=== PATIENT | female | born 1970 | race Caucasian/White ===

== ENCOUNTER 2020-04-10 12:37 | Outpatient (REF) | payer OTHER, SELFPAY ==
--- NOTE | 2020-04-10 12:45 | MM_ITS ---
EXAMINATION: MM DIAGNOSTIC DIGITAL BREAST TOMOSYNTHESIS, BILATERAL CLINICAL INFORMATION: Probable benign calcifications 11:00 right breast. Due for yearly. The lifetime risk of breast cancer based on the Tyrer-Cuzick Model is 12%. COMPARISON: Mammography: 04/07/2019, 09/30/2018, 04/01/2018, 03/25/2018 (BI-RADS 0), 03/12/2017, 02/20/2016 TECHNIQUE: Digital breast tomosynthesis is performed in both the craniocaudal and mediolateral oblique views along with computer-aided detection (CAD). Synthesized 2D images are generated from the tomosynthesis. Additional magnification right CC, magnification right ML views are provided. FINDINGS: There are scattered areas of fibroglandular density (ACR BI-RADS breast composition Category b). Parenchymal pattern is similar to prior studies. There is no developing density or interval mass or architectural abnormality. Again, there are numerous bilateral calcifications predominantly anterior breasts, greater in number on right. Biopsy clip marker again seen anterior 11:00 right breast. The right breast calcifications for follow-up mid upper outer quadrant are stable and similar to prior studies dating back to 2016. There are now considered benign. Results are provided to the patient at time of visit by the technologist. MM/MM tomosynthesis diagnostic BI IMPRESSION: 1. No significant changes from prior studies. 2. Right breast calcifications for follow-up are stable from prior diagnostic studies, and similar to more remote mammography 2016, and now considered benign. ASSESSMENT: BI-RADS 2: Benign RECOMMENDATION: Routine annual mammography screening. This patient's information was entered into a reminder system with a target due date for their next mammogram.
== END 2020-04-10 12:38 | disposition home or self-care (01) ==
LOC: HO.MAMMO 12:37
PROVIDERS: PCP Internal Medicine; Visit Provider Internal Medicine
DX: Z12.31 Encounter for screening mammogram for malignant neoplasm of breast (principal)
CPT/HCPCS: 77062; 77066

== ENCOUNTER 2020-09-25 09:51 | Outpatient (REF) | payer OTHER, SELFPAY ==
--- NOTE | ~2020-09-25 | US_ITS ---
EXAMINATION: US ABDOMEN COMPLETE CLINICAL INFORMATION: Right upper quadrant pain. COMPARISON: None TECHNIQUE: Real-time imaging of the abdominal viscera. FINDINGS: PANCREAS: Normal. ABDOMINAL AORTA: The proximal, mid, and distal segments are normal in caliber. INFERIOR VENA CAVA: Visualized portions are normal. LIVER: Liver echotexture is increased. There is a hypoechoic area adjacent to the gallbladder, characteristic location of focal fatty sparing. No other focal liver lesion is seen. The liver is normal in size and contour. There is no biliary duct dilatation. GALLBLADDER: The gallbladder is physiologically distended. Multiple mobile gallstones are present. No evidence of gallbladder wall thickening or pericholecystic fluid. COMMON BILE DUCT: Normal in caliber measuring 0.3 cm in diameter. RIGHT KIDNEY: Normal. No hydronephrosis. No renal calculi or focal parenchymal lesions. The kidney measures 11.4 cm in maximum dimension. LEFT KIDNEY: Normal. No hydronephrosis. No renal calculi or focal parenchymal lesions. The kidney measures 12.5 cm in maximum dimension. SPLEEN: Normal. The spleen measures 10.6 cm in maximum dimension. FREE FLUID: None. US/US abdomen complete IMPRESSION: Echogenic liver probably representing fatty infiltration. Gallstones.
== END 2020-09-25 09:52 | disposition home or self-care (01) ==
LOC: HO.US 09:51
PROVIDERS: PCP Internal Medicine; Visit Provider Registered Nurse
DX: R10.11 Right upper quadrant pain (principal)
CPT/HCPCS: 76700

== ENCOUNTER 2020-12-13 11:53 | Day surgery (SDC) | payer OTHER, SELFPAY ==
[2020-12-07 09:30] VITALS: BMI 38.4
--- NOTE | 2020-12-12 11:01 | P.CONAN_ITS ---
Documented by User: Luci Singer 12/12/20 11:02 HPI - Anesthesia Eval Consult details Narrative: 50yo F for Upper Endoscopy and Colonoscopy FOR[facility]LY [facility] Past Medical History Medical History History of retropharyngeal abscess Vitamin D deficiency Surgical History Surgical History Hx of total hysterectomy with removal of both tubes and ovaries Social History Social History Patient Tobacco Use Status: Never used Tobacco Use of substances other than those prescribed or required for medical reasons: No Are you DNR?: No Advance Directives: No Advance Directives Information Provided: Yes Meds Allergies Allergy/AdvReac Type Severity Reaction Status Date / Time amoxicillin Allergy Severe anaphylaxis Verified 12/13/20 12:09 latex Allergy Unknown Unknown Verified 12/13/20 12:09 Home Medications Medication Instructions Recorded Confirmed Last Taken Type Vitamin D3 12/07/20 Unknown History epinephrine [EpiPen] 0.3 mg IM Q10M PRN 12/07/20 12/07/20 Unknown History ibuprofen 12/07/20 Unknown History Exam Exam Date and Time: December 12, 2020 1101 Height,Weight and Vital Signs: Height 5 ft 3 in Weight 98.43 kg Assessment and Plan Assessment Anesthesia Assessment: Chart Reviewed Documented by User: Fartun Schuler 12/13/20 12:56 [facility] Past Medical History Medical History History of retropharyngeal abscess Vitamin D deficiency Surgical History Surgical History Hx of total hysterectomy with removal of both tubes and ovaries Social History Social History Patient Tobacco Use Status: Never used Tobacco Use of substances other than those prescribed or required for medical reasons: No Are you DNR?: No Advance Directives: No Advance Directives Information Provided: Yes Meds Allergies Allergy/AdvReac Type Severity Reaction Status Date / Time amoxicillin Allergy Severe anaphylaxis Verified 12/13/20 12:09 latex Allergy Unknown Unknown Verified 12/13/20 12:09 Home Medications Medication Instructions Recorded Confirmed Last Taken Type Vitamin D3 12/07/20 Unknown History epinephrine [EpiPen] 0.3 mg IM Q10M PRN 12/07/20 12/07/20 Unknown History ibuprofen 12/07/20 Unknown History Exam Airway Mallampati Class: III TM Dist: >3cm Neck ROM: Full Heart: RRR Lungs: CTA
[2020-12-13 12:12] VITALS: BMI 38.4
[2020-12-13 12:21] VITALS: BP 171/83; PULSE 90; RESP 16; TEMP 36.8; O2SAT 99
[2020-12-13] MEDS: Lactated Ringers 1,000 ML 100 ML IVCONT (12:29)
--- NOTE | 2020-12-13 13:04 | MHC.SHP ---
Pre-Procedural Eval Section A Date of Service: 12/13/20 The patient is an INPATIENT: No Changes since office visit: No Cold of Flu in the past 2 weeks, No New Medical Problems, No Changes in Medication and No Patient answered all questions The History & Physical has been completed within 30 days and I have reviewed it.: Yes Section B Chief Complaint: Epigastric Pain, Screening Allergies: Allergies Allergy/AdvReac Type Severity Reaction Status Date / Time amoxicillin Allergy Severe anaphylaxis Verified 12/13/20 12:09 latex Allergy Unknown Unknown Verified 12/13/20 12:09 Plan I have reviewed the history and physical and performed a pertinent physical examination on my patient. No changes have occurred unless specified.
[2020-12-13 13:40] VITALS: BP 102/58; PULSE 67; RESP 16; TEMP 36.3; O2SAT 96
--- NOTE | 2020-12-13 13:45 | PM.OP ---
Brief Operative Note Date of Service: 12/13/20 Pre-op diagnosis: epigastric pain,screening Post-op diagnosis: same (normal) Procedure: egd,colon Surgeon: Mahesh Tolentino Anesthesia: MAC Was an Property Condition Assessor used for this Procedure?: No Estimated blood loss (mL): 2 Pathology: other (antral bxs, egj) Condition: stable Disposition: PACU
[2020-12-13 13:55] VITALS: BP 127/42; PULSE 78; RESP 16; TEMP 36.3; O2SAT 96
--- NOTE | 2020-12-13 20:45 | OP_ITS ---
SURGEON: Mahesh Tolentino MD INDICATIONS: 1. Epigastric pain. 2. Colon cancer screening. PREOPERATIVE DIAGNOSIS: POSTOPERATIVE DIAGNOSIS: PROCEDURE PERFORMED: ESTIMATED BLOOD LOSS: COMPLICATIONS: ANESTHESIA: ASSISTANTS: SPECIMENS: PROCEDURES PERFORMED: 1. Upper endoscopy with biopsy. 2. Colonoscopy to the terminal ileum. MEDICATIONS: Monitored anesthesia care. DESCRIPTION OF PROCEDURE: History and physical performed. The risks and benefits of the procedure were explained to the patient. Informed consent was obtained. The patient was placed in left lateral decubitus position. The Olympus video gastroscope was introduced into the esophagus, stomach, and duodenum. Examination was performed. The scope was removed. She was repositioned for colonoscopy. A digital rectal exam was performed, and was found to be normal. The Olympus pediatric video colonoscope was introduced into the rectum and advanced to the cecum without difficulty. The cecum was identified by transillumination, palpation, and identification of ileocecal valve. Examination was performed. The scope was removed. She tolerated both procedures well and was taken to recovery in stable condition. FINDINGS: UPPER ENDOSCOPY: Esophagus: The esophagus was normal. There was no esophagitis. Biopsies were obtained from the EG junction. Stomach: Stomach showed no evidence of masses, ulcers, or polyps. Antral biopsies were obtained to rule out H pylori. Duodenum: The bulb and second portion were normal. COLONOSCOPY: The terminal ileum was normal. The visualized colonic mucosa was normal. The quality of prep was good. No polyps were identified. There was mild sigmoid diverticulosis with scattered diverticula throughout the remainder of the colon. Retroflexed examination showed small internal hemorrhoids. IMPRESSION: 1. Normal upper endoscopy. 2. Normal colonoscopy. RECOMMENDATION: 1. Follow up the biopsy results. 2. Colorectal cancer screening is recommended every 10 years for average risk individuals. MD RITCHIE Krueger/ENRIKE / [id number]
== END 2020-12-13 14:57 | disposition home or self-care (01) ==
PROVIDERS: PCP Internal Medicine; Visit Provider Internal Medicine Gastroenterology
PROC: (CPT 45378; principal; 2020-12-13 13:00)
DX: Z12.11 Encounter for screening for malignant neoplasm of colon (principal); K57.30 Diverticulosis of large intestine without perforation or abscess without bleeding; K64.8 Other hemorrhoids; K29.50 Unspecified chronic gastritis without bleeding; K20.90 Esophagitis, unspecified without bleeding; E55.9 Vitamin D deficiency, unspecified; R79.82 Elevated C-reactive protein (CRP); Z79.1 Long term (current) use of non-steroidal anti-inflammatories (NSAID); Z91.040 Latex allergy status; Z88.0 Allergy status to penicillin; Z79.899 Other long term (current) drug therapy
CPT/HCPCS: 45378; 43239; 88305; 88342; J3010

== ENCOUNTER 2021-04-13 09:42 | Outpatient (REF) | payer OTHER, SELFPAY ==
--- NOTE | ~2021-04-13 | MM_ITS ---
EXAMINATION: MM SCREENING DIGITAL BREAST TOMOSYNTHESIS, BILATERAL CLINICAL INFORMATION: Screening. Asymptomatic. Benign right ultrasound-guided biopsy 01/06/2014 (benign breast tissue with apocrine microcysts and histiocytic inflammation consistent with cyst rupture). Benign right ultrasound-guided biopsy 12/25/2011 (benign cyst). The lifetime risk of breast cancer based on the Tyrer-Cuzick Model is 12%. COMPARISON: Mammography: 04/10/2020, 04/07/2019, 09/30/2018, 03/25/2018 TECHNIQUE: Digital breast tomosynthesis is performed in both the craniocaudal and mediolateral oblique views along with computer-aided detection (CAD). Synthesized 2D images are generated from the tomosynthesis. FINDINGS: The breasts are heterogeneously dense, which may obscure small masses (ACR BI-RADS breast composition Category c). Breast tissue composition borders on average fibroglandular. Parenchymal pattern is similar to prior studies. There are scattered asymmetries similar to prior exams aerated no developing density. No significant mass or architectural abnormality. Again, there are scattered bilateral punctate calcifications predominantly anterior breasts. There are 2 biopsy clip markers again seen right anterior 11:00 position mid 4:00 position. MM/MM tomosynthesis screening BI IMPRESSION: No significant changes from prior studies. ASSESSMENT: BI-RADS 2: Benign RECOMMENDATION: Routine annual mammography screening. This patient's information was entered into a reminder system with a target due date for their next mammogram.
== END 2021-04-13 09:43 | disposition home or self-care (01) ==
LOC: HO.MAMMO 09:42
PROVIDERS: Visit Provider Internal Medicine
DX: Z12.31 Encounter for screening mammogram for malignant neoplasm of breast (principal)
CPT/HCPCS: 77063; 77067

== ENCOUNTER → 2021-06-05 13:49 | Outpatient (REF) | payer OTHER, SELFPAY ==
--- NOTE | 2021-06-05 14:00 | CA_ITS ---
Transthoracic Echocardiogram Patient (Last, First, Middle): Stanley Araujo Lee Gender: Female Date of : 1970 Age: 51 Procedure Date: 06/05/2021 Procedure Type: Transthoracic Echocardiogram Location: OP Height: 160.02 cm Weight: 97.52 kg BSA: 1.99 m2 Heart Rate: bpm BP: 130 / 80 mmHg Assistant Attorney General: SHERINE Referring MD: Mar Seymour [employer]CRA[employer] LOAD CONTROLLER Symptoms: R00.2 PALPITATIONS Study Quality: Fair ECG Rhythm: Sinus Conclusions: - The left ventricular systolic function is normal. The calculated ejection fraction is 60% by biplane method. - No obvious valvular pathology seen on this study. Findings Left Ventricle Normal left ventricular cavity size. There is normal left ventricular wall thickness. The left ventricular systolic function is normal. The calculated ejection fraction is 60% by biplane method. There is no evidence of regional wall motion abnormalities. Diastolic function is normal for age. Right Ventricle Normal right ventricular cavity size and systolic function. Atria Both atria are normal in size. Aortic Valve There is a normal trileaflet aortic valve. There is no aortic valve stenosis. There is no aortic valve regurgitation. Mitral Valve The mitral valve appears normal. There is trace mitral valve regurgitation. There is no mitral valve stenosis. Pulmonic Valve The pulmonic valve was not well visualized. Tricuspid Valve Normal tricuspid valve structure. There is trace tricuspid valve regurgitation. The pulmonary artery systolic pressure is normal. Great Vessels The aortic annulus, sinuses of valsalva, and asc aorta are normal in size. Venous The inferior vena cava was not well visualized. Pericardium/Pleural There is no evidence of pericardial effusion. Prior Study Comparison No prior study available for comparison. Recommendations, Care & Conclusions No obvious valvular pathology seen on this study. Measurements 2D Linear Measurements IVSd: 0.88 0.6-0.9/0.6-1.0 cm LVIDd: 4.96 3.9-5.3/4.2-5.9 cm LVIDd Index: 2.49 2.4-3.2/2.2-3.1 cm/m2 LVIDs: 2.95 2.0-3.6 cm LVPWd: 0.85 0.7-1.1 cm LA Diam: 3.50 2.7-3.8/3.0-4.0 cm LAIDs Index: 1.76 1.5-2.3 cm/m2 LV Mass: 184.63 67-162/88-224 g LV Mass Index: 92.78 43-95/49-115 g/m2 LVOT Diam: 2.00 3.0+(-)1.3 cm 2D Systolic Function EF 4C: 69.20 >55% EF 2C: 48.80 >55% EF BiP: 60.00 >55% Mitral Valve MV Pk E: 0.77 MV PK A: 0.63 MV Decel Time: 147.00 E/A: 1.20 E'Lateral: 11.60 E'Medial: 6.53 E/E' Med: 11.70 E/E' Lat: 6.60 PHT: 43.00 MVA PHT: 5.12 Decel Hodgeman: 5.22 Aortic Valve AoV Pk Zack: 1.51 AoV Pk Grad: 9.00 LVOT LVOT Pk Zack: 1.22 LVOT Mn Zack: 0.81 LVOT VTI: 0.25 LVOT Pk Grad: 6.00 LVOT Mn Grad: 3.00 LVOT Diam: 2.00 LVOT Area: 3.14 Diastolic Function MV Pk E: 0.77 MV Pk A: 0.63 E/A: 1.20 E'Medial: 6.53 E/E' Med: 11.70 E' Laterial: 11.60 E/E' Lat: 6.60 Right Ventricle TAPSE (mm): 2.40 TVS' Zack: 20.10 Tricuspid Valve TR Pk Zack: 2.39 TR Pk Grad: 23.00 RA Press: 3.00 RVSP: 26.00 Great Vessels Aorta Ao Asc: 3.10 2.1-3.4 cm Updated in Other Vendor System with Status of Final Everton Kearns MD electronically signed on 06/07/2021 1:15:31 PM with status of Final
== END ==
LOC: HO.CARD 13:49
PROVIDERS: PCP Internal Medicine; Visit Provider Registered Nurse
DX: R00.2 Palpitations (principal)
CPT/HCPCS: 93306

== ENCOUNTER 2022-04-26 09:40 | Outpatient (REF) | payer OTHER, SELFPAY ==
--- NOTE | ~2022-04-26 | MM_ITS ---
EXAMINATION: MM SCREENING DIGITAL BREAST TOMOSYNTHESIS, BILATERAL CLINICAL INFORMATION: Screening. Asymptomatic. The lifetime risk of breast cancer based on the Tyrer-Cuzick Model is 7%. COMPARISON: Mammography: 04/13/2021, 04/10/2020, 04/07/2019 TECHNIQUE: Digital breast tomosynthesis is performed in both the craniocaudal and mediolateral oblique views along with computer-aided detection (CAD). Synthesized 2D images are generated from the tomosynthesis. FINDINGS: There are scattered areas of fibroglandular density (ACR BI-RADS breast composition Category b). Parenchymal pattern is similar to prior exams and there is no interval mass or architectural abnormality or developing density. Scattered bilateral punctate round calcifications are again demonstrated, predominantly in the anterior breasts. The right breast and 2 biopsy clip marker anterior upper outer quadrant and mid lower inner quadrant, respectively. The axilla and skin contours are unremarkable. No significant changes. MM/MM tomosynthesis screening BI IMPRESSION: No mammographic evidence of malignancy. ASSESSMENT: BI-RADS 2: Benign RECOMMENDATION: Routine annual mammography screening. This patient's information was entered into a reminder system with a target due date for their next mammogram.
== END 2022-04-26 09:41 | disposition home or self-care (01) ==
LOC: HO.MAMMO 09:40
PROVIDERS: Visit Provider Internal Medicine
DX: Z12.31 Encounter for screening mammogram for malignant neoplasm of breast (principal)
CPT/HCPCS: 77063; 77067

== ENCOUNTER 2023-05-02 09:40 | Outpatient (REF) | payer OTHER, SELFPAY ==
--- NOTE | ~2023-05-02 | MM_ITS ---
EXAMINATION: MM SCREENING DIGITAL BREAST TOMOSYNTHESIS, BILATERAL CLINICAL INFORMATION: Screening. Asymptomatic. COMPARISON: Mammography: This study is compared with prior exams dating back to TECHNIQUE: Digital breast tomosynthesis is performed in both the craniocaudal and mediolateral oblique views along with computer-aided detection (CAD). Synthesized 2D images are generated from the tomosynthesis. FINDINGS: There are scattered areas of fibroglandular density (ACR BI-RADS breast composition Category b). There are no significant masses, abnormal calcifications, or other abnormalities. There are 2 tissue markers in the right breast from prior benign percutaneous biopsies. MM/MM tomosynthesis screening BI IMPRESSION: No mammographic evidence of malignancy. ASSESSMENT: BI-RADS BI-RADS 2 - Benign Findings RECOMMENDATION: Routine annual mammography screening. 1 year F/U This examination should not preclude the clinical evaluation of a suspicious palpable abnormality. This patient's information was entered into a reminder system with a target due date for their next mammogram.
== END 2023-05-02 09:41 | disposition home or self-care (01) ==
LOC: HO.MAMMO 09:40
PROVIDERS: PCP Internal Medicine; Referring Provider Obstetrics & Gynecology; Visit Provider Internal Medicine
DX: Z12.31 Encounter for screening mammogram for malignant neoplasm of breast (principal)
CPT/HCPCS: 77063; 77067

== ENCOUNTER → 2023-05-02 10:15 | Outpatient (BNV) | payer OTHER, SELFPAY | PROVIDERS: PCP Internal Medicine; Referring Provider Obstetrics & Gynecology; Visit Provider Radiology Diagnostic Radiology | DX: Z12.31 Encounter for screening mammogram for malignant neoplasm of breast (principal) | CPT/HCPCS: 77063; 77067 ==

== ENCOUNTER 2024-03-31 09:02 | Outpatient (REF) | payer OTHER, SELFPAY ==
--- NOTE | ~2024-03-31 | US_ITS ---
EXAMINATION: US ABDOMEN LIMITED CLINICAL INFORMATION: CRP elevated. Gallbladder stones. COMPARISON: Ultrasound abdomen complete 09/25/2020. TECHNIQUE: Real-time imaging of the right upper quadrant abdominal viscera. FINDINGS: PANCREAS: The visualized portion of the pancreas head and body are normal, portion of the pancreatic body and tail, not visualized are obscured by bowel gas. LIVER: The liver is normal in size. The liver contour is normal. Increased echogenicity of the liver parenchyma, this can be seen in the setting of hepatic steatosis or liver parenchymal disease. No focal hepatic lesion. There is no intrahepatic biliary duct dilatation seen. GALLBLADDER: The gallbladder is physiologically distended. Multiple mobile gallstones are present. No evidence of gallbladder wall thickening or pericholecystic fluid. COMMON BILE DUCT: Normal in caliber measuring 0.4 cm in diameter. RIGHT KIDNEY: Normal. No hydronephrosis. No renal calculi or focal parenchymal lesions. The kidney measures 11.8 cm in maximum dimension. FREE FLUID: None. ADDITIONAL FINDINGS: Superior to the right kidney there is a septated fluid-filled structure in the suprarenal fossa could be of adrenal origin measures 5.7 x 5.4 x 5.2 cm. US/US abdomen limited IMPRESSION: 1. Cholelithiasis without ultrasound evidence of acute cholecystitis. 2. Increased echogenicity of the liver parenchyma, this can be seen in the setting of hepatic steatosis or liver parenchymal disease. 3. Septated fluid-filled 5.7 cm structure superior to the right kidney could be of right renal origin versus mesenteric cystic mass, would recommend correlation with follow-up cross-sectional imaging CT scan with contrast, if not performed follow-up ultrasound in 3 months advised. Electronically signed by: Capri Oakley MD 04/11/2024 05:43 PM EST
== END 2024-03-31 09:03 | disposition home or self-care (01) ==
LOC: HO.US 09:02
PROVIDERS: PCP Internal Medicine; Visit Provider Internal Medicine
DX: R79.82 Elevated C-reactive protein (CRP) (principal); K80.20 Calculus of gallbladder without cholecystitis without obstruction
CPT/HCPCS: 76705

== ENCOUNTER 2024-05-07 10:13 | Outpatient (REF) | payer OTHER, SELFPAY ==
--- OUTSIDE RECORDS SUMMARY | 2024-05-07 10:16 | XMS_ITS | Patient Health Record ---
Author Organization [facility] Address [address] [place] [id number] Care Team Providers Care Handle Assembler Name Role Phone Edgardo Mancia MD Primary Care Provider Mahesh Mckoy Jr Unavailable ALLERGIES Allergen (clinical drug ingredient) Drug/Non Drug Allergy documented on EMR Reaction Allergy Type Onset Date Status Latex Latex Unknown Allergy Active amoxicillin Amoxicillin Unknown Drug Allergy Act ray REASON FOR REFERRAL No Information MEDICATIONS Medication SIG (Take, Route, Frequency, Duration) Notes Start Date End Date Status ibuprofen Active EpiPen Active Vitamin D Active MiraLax (colon prep) 8.3 ounce ((238) grams mixed with Gatorade or Crystal Light orally begin at 5:00 p.m. the day before the procedure for 1 day 11/20/2020 Active SOCIAL HISTORY Tobacco Use: Social History Observation Description Date Details (start date - stop date) Never Smoker NA - NA Sex Assigned At : Social History Observation Description Sex Assigned At Unknown Tobacco Use/Smoking Question Answer Notes Patient is a nonsmoker Alcohol Screen Question Answer Notes Did you have a drink contain ing alcohol in the past year? Yes How often did you have a dri nk containing alcohol in the past year? Never (0 point) How many drinks did you have on a typical day when you were drinking in the past year? 1 or 2 drinks (0 point) How often did you have 6 or more drinks on one occasion in the past year? Never (0 point) Points 0 Interpretation Negative PROBLEMS Problem Type ICD Code Onset Dates Problem Status W/U Status Risk SNOMED Code Notes Problem Epigastric pain (R10.13) Active confirmed 68408856 Problem Colon cancer screening (Z12.11) Active confirmed 551874326 Problem Elevated C-reactive protein (CRP) (R79.82) Active confirmed [id number] PLAN OF TREATMENT Future Test Test Name Order Date UPPER GI ENDOSCOPY 11/20/2020 COLONOSCOPY 11/20/2020 Insurance Providers Payer Name Payer Address Payer Phone Subscriber Number Group Number Insured Name Patient Relationship to Insured Coverage Start Date Coverage End Date [facility] [address] [facility] [place] [phone] [id number] ANDREA MILLER Self - patient is the insured MEDICAL (GENERAL) HISTORY Medical History History ICD Code Retropharyngeal abscess Elevated CRP Echogenic liver on ultrasound consistent with fatty infiltration Hyperlipidemia Surgical History Surgery Date(Month/Year) hysterectomy/oophorectomy
== END 2024-05-07 10:14 | disposition home or self-care (01) ==
LOC: HO.MAMMO 10:13
PROVIDERS: PCP Internal Medicine; Visit Provider Internal Medicine
DX: Z12.31 Encounter for screening mammogram for malignant neoplasm of breast (principal)
CPT/HCPCS: 77063; 77067

== ENCOUNTER → 2024-05-07 10:30 | Outpatient (BNV) | payer OTHER, SELFPAY | PROVIDERS: PCP Internal Medicine; Visit Provider Internal Medicine | DX: Z12.31 Encounter for screening mammogram for malignant neoplasm of breast (principal) | CPT/HCPCS: 77063; 77067 ==

== ENCOUNTER 2024-06-09 07:18 | Outpatient (REF) | payer OTHER, SELFPAY ==
--- NOTE | ~2024-06-09 | CT_ITS ---
EXAMINATION: CT ABDOMEN AND PELVIS WITH CONTRAST CLINICAL INFORMATION: Septated mass above right kidney. COMPARISON: No prior CT. Ultrasound abdomen 03/31/2024, 09/25/2020. TECHNIQUE: Multidetector volumetric images were obtained from the superior aspect of the liver through the pubic symphysis following administration 85 mL of Omnipaque 350 intravenous contrast. Sagittal and coronal reformatted images were obtained on the technologist's workstation. Oral contrast: No This CT examination was performed using dose optimization techniques as appropriate, variously including the following: *Automated exposure control *Adjustment of mA and/or kV according to patient size (this includes techniques or standardized protocols for targeted exams where dose is matched to indication/reason for exam; i.e. extremities or head) *Use of iterative reconstruction technique FINDINGS: LUNG BASES: -3 mm nodule in the posterior right lower lobe (series 8, image 3). -Lung bases otherwise clear. No effusions. -Normal heart size. There are coronary calcifications. -Normal GE junction. LIVER, GALLBLADDER, AND BILIARY TREE: The liver is diffusely decreased in attenuation consistent with fatty infiltration. There are mild foci of fatty sparing in the right hepatic lobe and abutting the gallbladder fossa. Arising exophytically from segment 6 is a simple appearing cyst measuring 4.1 x 6.7 x 4.4 cm (AP, TRV, CC). No enhancing septation or other complicating feature. This is consistent with a benign entity. There is no intra or extra hepatic biliary dilatation. The gallbladder demonstrates numerous intraluminal calcified gallstones, with no gallbladder wall thickening, or obvious pericholecystic inflammatory changes. PANCREAS: Unremarkable. SPLEEN: Unremarkable. ADRENAL GLANDS: Unremarkable. KIDNEYS AND URETERS: The kidneys are normal in size, shape, and attenuation. No hydronephrosis, hydroureter, or calculi seen. No perinephric stranding. BLADDER: Unremarkable. GASTROINTESTINAL TRACT: -Mild diverticulosis of the descending and sigmoid colon. No inflammation. There are right-sided colonic diverticuli. -Normal appendix. -Stomach is decompressed. -Normal duodenum and small bowel. -No acute GI findings. ABDOMINAL WALL: No significant hernia is appreciated. LYMPH NODES: Normal. VASCULAR: Mild calcification of the aorta and iliac arteries. No aneurysm. -No evidence of venous thrombosis. PELVIC VISCERA: -Normal uterus and adnexal regions. Solitary surgical clip abutting the left ovary. No adnexal masses. OSSEOUS STRUCTURES: No No suspicious lytic or blastic bone lesions. Mild degenerative changes in both hip joints and throughout the spine. CT/CT abdomen pelvis w IV con IMPRESSION: 1. No acute findings in the abdomen or pelvis. 2. There is a simple appearing cyst arising from segment 6 exophytically from the liver, just lateral to the superior right kidney. This has no complicating features by CT. This is benign. 3. Fatty infiltration of the liver. 4. Cholelithiasis. 5. Mild diverticulosis of the descending and sigmoid colon. 6. There is a 3 mm nodule right lower lobe, statistically benign (chance of malignancy less than 1%). Follow-up in one year recommended if the patient is high risk. Electronically signed by: James Torres MD 06/09/2024 08:37 AM [facility]ARR[facility]IS
[2024-06-09 08:20] LABS: Creatinine POC 0.8 mg/dL (0.5-1.4); GFR POC > 60
[2024-06-09] MEDS: iohexoL 350 MG/ML 100 ML INFUS..BTL IV (08:23)
== END 2024-06-09 07:19 | disposition home or self-care (01) ==
LOC: HO.CT 07:18
PROVIDERS: PCP Internal Medicine; Visit Provider Internal Medicine
DX: R93.89 Abnormal findings on diagnostic imaging of other specified body structures (principal)
CPT/HCPCS: 74177; 82565; Q9967

== ENCOUNTER → 2024-06-09 07:20 | Outpatient (BNV) | payer OTHER, SELFPAY | PROVIDERS: PCP Internal Medicine; Visit Provider Radiology Diagnostic Radiology | DX: K76.89 Other specified diseases of liver (principal); K57.30 Diverticulosis of large intestine without perforation or abscess without bleeding; R91.1 Solitary pulmonary nodule | CPT/HCPCS: 74177 ==

== ENCOUNTER 2025-05-13 10:06 | Outpatient (REF) | payer OTHER, SELFPAY ==
--- NOTE | ~2025-05-13 | MM_ITS ---
EXAMINATION: MM SCREENING DIGITAL BREAST TOMOSYNTHESIS, BILATERAL CLINICAL INFORMATION: Screening. Asymptomatic. COMPARISON: Mammography: Comparison is made with available priors TECHNIQUE: Digital breast mammography with tomosynthesis is performed in both the craniocaudal and mediolateral oblique views along with computer-aided detection (CAD). FINDINGS: The breasts are heterogeneously dense, which may obscure small masses. Right marker clip. There are no significant masses, abnormal calcifications, or other abnormalities. MM/MM tomosynthesis screening BI IMPRESSION: No mammographic evidence of malignancy. ASSESSMENT: BI-RADS Category 2: Benign RECOMMENDATION: Routine annual mammography screening. 1 year F/U This examination should not preclude the clinical evaluation of a suspicious palpable abnormality. This patient's information was entered into a reminder system with a target due date for their next mammogram. Electronically signed by: Susan Jay DO 05/16/2025 07:48 PM [facility]
--- OUTSIDE RECORDS SUMMARY | 2025-05-13 11:23 | XMS_ITS | Patient Health Record ---
Author Organization [facility] Address [address] [place] [id number] Care Team Providers Care Machine Inspector Name Role Phone Edgardo Mancia MD Primary Care Provider Mahesh Mckoy Jr Unavailable [phone] Allergies Allergen (clinical drug ingredient) Drug/Non Drug Allergy documented on EMR Reaction Allergy Type Onset Date Status amoxicillin Amoxicillin Unknown Drug Allergy Act ray Latex Latex Unknown Allergy Active Reason For Referral No Information Medications Medication SIG (Take, Route, Frequency, Duration) Notes Start Date End Date Status ibuprofen Active EpiPen Active Vitamin D Active MiraLax (colon prep) 8.3 ounce ((238) grams mixed with Gatorade or Crystal Light orally begin at 5:00 p.m. the day before the procedure; Duration: 1 day 11/20/2020 Active Social History Tobacco Use: Social History Observation Description Date Details (start date - stop date) Never Smoker NA - NA Social History Drugs/Alcohol: Social Info Question Answer Notes Alcohol Screen Did you have a drink containing alcohol in the past year? Yes How often did you have a drink containing alcohol in the past year? Never (0 point) How many drinks did you have on a typical day when you were drinking in the past year? 1 or 2 drinks (0 point) How often did you have 6 or more drinks on one occasion in the past year? 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 [employer] Problems Problem Type SNOMED Code ICD Code Onset Dates Problem Status W/U Status Risk Notes Problem Colon cancer screening (719942501) Colon cancer screening (Z12.11) Active confirmed Problem Epigastric pain (28581393) Epigastric pain (R10.13) Active confirmed Problem C-reactive protein abnormal (844443060) Elevated C-reactive protein (CRP) (R79.82) Active confirmed Plan Of Treatment Future Test Test Name Order Date UPPER GI ENDOSCOPY 11/20/2020 COLONOSCOPY 11/20/2020 Insurance Providers Payer Name Payer Address Payer Phone Subscriber Number Group Number Insured Name Patient Relationship to Insured Coverage Start Date Coverage End Date [facility] [address] [facility] [place] [phone] [id number] ANDREA MILLER Self - patient is the insured Medical (General) History Medical History History ICD Code Retropharyngeal abscess Elevated CRP Echogenic liver on ultrasound consistent with fatty infiltration Hyperlipidemia Surgical History Surgery Date(Month/Year) hysterectomy/oophorectomy
--- OUTSIDE RECORDS SUMMARY | 2025-05-13 11:23 | XMS_ITS | Clinical Summary ---
Author Organization [facility] Address [address] [address] Phone Care Team Providers Care Security Tester Name Role Phone Edgardo Mancia MD Unavailable Kenyatta Bourgeois MD Unavailable [phone] Francine De La Torre MD Unavailable Sadi Vazquez MD Primary Care Provider [phone] Tisha Chowdary Unavailable [phone] Gwen Vallecillo PA-C Unavailable [phone] Allergies Active Allergy Reactions Criticality Noted Date Comments Adhesive Rash Low 11/25/2019 Amoxicillin Anaphylaxis,Rash High 10/06/2018 Latex Rash Low 11/25/2019 Other Reaction(s): Unknown Medications EPINEPHrine (EPIPEN) 0.3 mg/0.3 mL auto-injectorIn dications:Aller gic reaction to bee sting Inject 0.3 mL (0.3 mg total) into the muscle once as needed for anaphylaxis. Intramuscular USE NEEDED FOR REACTIONS 2 each 5 Active betamethasone valerate 0.1 % creamIndication s:Allergic contact dermatitis, unspecified trigger Apply topically 2 (two) times a day. Legs, trunk 45 g 5 Active cholecalciferol (VITAMIN D3) 5,000 unit tablet Take 5,000 Units by mouth daily. Active quercetin 500 mg Cap Take 2 capsules by mouth daily. Active POTASSIUM ORAL Take 99 mg by mouth daily. Active BLACK COHOSH ROOT EXTRACT ORAL Take 1 capsule by mouth daily. Active Active Problems Problem Noted Date Diagnosed Date Elevated blood pressure read ing without diagnosis of hypertension 09/03/2024 Routine general medical exam ination at a health care facility 07/09/2024 Assessment & Plan (07/09/2024 3:12 PM EST): Patient has elevated CRP of unknown etiology but then also diagnosis of suspicion of KASSI and now the elevated blood pressure in the setting of obesity. The patient is eating better and we congratulated her both to her efforts and her success, we will be looking at the risk factors including her blood pressure over the next couple of months but then also looking at lipid profile and hemoglobin A1c and repeating the CRP. There is a low threshold to get a brain MRI regarding the vertigo and I might order that as a nonurgent imaging concern particularly about the area of the brainstem and cerebellum looking for lacunar infarcts for example. Will hold off for now and see what her blood pressure is doing along with the other labs that will be drawn today. I will call in a refill on the EpiPens for bee stings, and then the betamethasone cream for rashes. Okay to use the Voltaren gel for fingers and larger joints. Branch retinal vein occlusio n of right eye with macular edema 09/27/2021 Assessment & Plan (11/26/2021 11:33 AM EDT): Unclear etiology continue close follow-up with treating votator machine operator and release records of most recent evaluation for review. Left ankle swelling 2021 Assessment & Plan (2021 10:52 PM EST): Work on decreasing body weight as close as possible to ideal range for her height. Well fitting, supportive shoe wear. Continue wearing brace as instructed. Frequent resting and elevating on a pillow. She may benefit from topical cream versus patch 2-3 times daily and if needed at bedtime x 2-3 weeks as needed, Chronic fatigue 2021 Assessment & Plan (2021 10:52 PM EST): Well-balanced nutritionally diet. Proper hydration. Gentle, regular exercise routine. Avoid falls, injuries, overuse and sick contacts. Keep up-to-date with age-appropriate screenings and preventive strategies. Regular engagement in hobbies/favorite activities. Other dysphagia 2021 Assessment & Plan (11/09/2021 3:22 PM EDT): Keep a diary of episodes with modifying factors to make sure that symptoms are not progressive. Assessment & Plan (2021 10:36 PM EST): Keep a diary of episodes with modifying factors to make sure that symptoms are not progressive. Swelling of right wrist 2021 Assessment & Plan (2021 10:38 PM EST): Use warm packs followed by topical Arnica versus Aspercreme versus Biofreeze versus Voltaren gel alternating with ice packs. Splinting and assistive devices as needed for extended activities. Adhere to a joint protection, energy conservation techniques. Gentle, regular exercise routine as tolerated. Call if worse or not better. Hand arthritis 2021 Assessment & Plan (2021 10:36 PM EST): Protection, energy conservation techniques reviewed and strongly encouraged. Gentle, regular exercising-examples of hands exercises with pictures and detailed instructions printed for home use. Continue splinting and assistive devices as necessary. Consider local cream versus patch 2-3 times daily and if needed at bedtime. May need to offer formal OT if not better or worse versus local steroid injection. Class 2 obesity due to exces s calories without serious comorbidity with body mass index (BMI) of 38.0 to 38.9 in adult 2021 Assessment & Plan (11/09/2021 3:14 PM EDT): Portion control. Limit concentrated sugars, saturated fats and calories in the diet. Keep well-hydrated. If unable to achieve expected goal consider formal dietary/nutritional support. Assessment & Plan (2021 10:34 PM EST): I have stressed to her a crucial role of weight management in decreasing stress to her joints, cardiopulmonary and musculoskeletal systems. It may also improve inflammatory burden by reducing formation of inflammatory chemicals from excessive fatty tissue. We established a weight loss goal at 6 pounds in 6 months Portion control. Limit concentrated sugars, saturated fats and calories in the diet. Keep well-hydrated. If unable to achieve expected goal consider formal dietary/nutritional support. Fatty liver 10/02/2020 Gallstones 10/02/2020 CRP elevated 02/21/2020 Assessment & Plan (03/03/2024 5:11 PM EDT): Will follow-up on the CRP and also obtain a sed rate and SPEP. Also CBC with differential. She does not seem to have any focus of inflammation so we will also obtain an ultrasound limited right upper quadrant fasting to investigate gallstone disease. Will also assess the fatty liver and compare with previous. Based on those results we will make some further suggestions. Assessment & Plan (11/26/2021 11:38 AM EDT): I have explained to her that chronic CRP elevation may have been present even before it was first documented around the time of retropharyngeal abscess. It is reassuring that readings are not progressively increasing. If there are no other abnormalities detected on requested lab work periodic monitoring with efforts on decreasing body weight may be sufficient. Call if problems or questions in the interim otherwise return in 6 months. Assessment & Plan (2021 10:40 PM EST): I have explained to her that chronic CRP elevation may have been present even before it was first documented around the time of retropharyngeal abscess. It is reassuring that readings are not progressively increasing. If there are no other abnormalities detected on requested lab work periodic monitoring with efforts on decreasing body weight may be sufficient. Call if problems or questions in the interim otherwise return in 6 months. Elevated immunoglobulin A 02/21/2020 Assessment & Plan (01/05/2025 8:57 AM EDT): IMPRESSION: This is a 54-year-old woman with history of chronic persistently elevated IgA as well as inflammatory marker CRP. This is likely reactive/secondary in nature. DISCUSSION: I discussed our impression, differential diagnosis and further evaluation in this regard. Overall clinical picture is consistent with the above-mentioned impression. Serum protein protein electrophoresis did not show any evidence of monoclonal protein. Rest of her labs are also unremarkable and all of this speaks against any underlying hematological disease/plasma cell disorder. She will undergo complete laboratory screen for plasma cell disorder and if it comes back unremarkable then no further diagnostic intervention will be necessary at this time in this regard. RECOMMENDATIONS: Patient to go to the lab for the blood work Multiple myeloma screen Follow-up to discuss the results of the blood work in few weeks Thank you very much for allowing me to participate in this patient's care Assessment & Plan (11/09/2021 3:18 PM EDT): According to the literature increased serum levels of IgA are seen in several inflammatory disorders, including IgA nephropathy, IgA vasculitis such as Henoch-Schoenlein purpura, AIDS, hepatic cirrhosis, advanced hepatitis, IgA myeloma and autoimmune diseases such as rheumatoid arthritis or systemic lupus erythematosus but I do not find any of them present at this time. Periodic monitoring may be indicated. Assessment & Plan (2021 11:45 PM EST): According to the literature increased serum levels of IgA are seen in several inflammatory disorders, including IgA nephropathy, IgA vasculitis such as Henoch-Schoenlein purpura, AIDS, hepatic cirrhosis, advanced hepatitis, IgA myeloma and autoimmune diseases such as rheumatoid arthritis or systemic lupus erythematosus but I do not find any of them present at this time. Periodic monitoring may be indicated. Essential hypertension 11/15/2018 Assessment & Plan (07/09/2024 3:10 PM EST): The patient is not on any antihypertensive and she felt she might have office hypertension but the incident of the vertigo has me concerned enough to have her check her blood pressure at home daily for the next couple months and report back to us even after a month if it is at or above 140/90. That would prompt me to start her on any antihypertensive. Irrespective though I will see her back in 2 months to see about her blood pressure and go over the rest of her risk factors. Will be looking at hemoglobin A1c, lipid profile. Assessment & Plan (02/21/2020 6:11 AM EDT): BP borderline elevated today. Will continue to monitor. Suspected sleep apnea 11/15/2018 Allergic contact dermatitis 11/15/2018 Assessment & Plan (02/21/2020 6:11 AM EDT): Continue betamethasone prn, no more than qd x 2 weeks. Aware of potential for skin thinning at application site. Vitamin D insufficiency 11/15/2018 Assessment & Plan (11/09/2021 3:22 PM EDT): I reviewed with Stanley that borderline normal vitamin D in December 2020 is most likely lower now in April since she only takes 1000 units of vitamin D daily. Optimal vitamin D level should be at 40-45 ng/ml therefore I prescribed her vitamin D 5000 units to be taken at least till the end of July 2021. Assessment & Plan (2021 10:33 PM EST): I reviewed with Stanley that borderline normal vitamin D in December 2020 is most likely lower now in April since she only takes 1000 units of vitamin D daily. Optimal vitamin D level should be at 40-45 ng/ml therefore I prescribed her vitamin D 5000 units to be taken at least till the end of July 2021. Hyperlipidemia 10/07/2018 Assessment & Plan (02/21/2020 6:10 AM EDT): Await labs. Disorder of ligament of left ankle Assessment & Plan (02/21/2020 6:11 AM EDT): Continue therapy as prescribed by [facility]. Encounters Date Type Department Care Team Description 03/08/2025 11:00 AM EDT Telemedicine - audio only [facility] at [address] [address] Gwen Vallecillo, JACQUES Elevated immunoglobulin A (Primary Dx); CRP elevated from Last 3 Months Immunizations Immunization Administration Dates Next Due INFLUENZA, SPLIT VIRUS, TRIVALENT PF 02/29/2016, 04/11/2015 INFLUENZA, SPLIT VIRUS, TRIVALENT W/ PRESERVATIV E IM 02/25/2014 Influenza Quadrivalent Preservative Free IM 01/25,03/19/2017 Td (adult) 5 Lf Tetanus Toxoid, PF, Adsorbed ,08/25/2003 Zoster recombinant 11/08/2020,07/25/2020 Family History Medical History Relation Comments Pacemaker Brother 1 Cancer Brother 2 Tonsil Stroke Brother 2 hemorrhaging Kidney disease Father Lung cancer Maternal Grandfather Breast cancer Maternal Grandmother bilateral Heart failure Maternal Grandmother Osteoporosis Maternal Grandmother Pacemaker Maternal Grandmother Heart attack Mother Heart disease Mother Heart failure Mother Hepatitis A Mother Hypertension Mother Pancreatitis Mother Cancer Paternal Grandfather No Known Problems Sister 1 Retinal detachment Sister 2 bilateral Relation Status Comments Brother 1 Alive Brother 2 Alive Brother 3 Alive Brother 4 Alive Father Alive Maternal Grandfather Maternal Grandmother Mother Alive Paternal Grandfather Paternal Grandmother in sle ep Sister 1 Alive Sister 2 Alive Social History Tobacco Use Types Packs/Day Years Used Date Smoking Tobacco: Never Smokeless Tobacco: Never Alcohol Use Standard Drinks/Week Comments Yes 0 (1 standard drink = 0.6 oz pur e alcohol) once every few months Child or Family Care Answer Date Record ed Do you have problems with on e of the following making it difficult for you to work, study, or receive health care? I choose not to answer 07/06/2024 Education Answer Date Recorded Are you interested in help w ith more adult education (for example, completing high school, GED, job training, learning the [place]aur[place] language, technical skills, or developing parenting skills)? I choose not to answer 07/06/2024 Are you concerned about learning? Not on file 07/06/2024 No 07/06/2024 Yes 07/06/2024 Food Answer Date Recorded Within the past 6 months we worried whether our food would run out before we got money to buy more. I choose not to answer 07/06/2024 Food didn't last Not on file 07/06/2024 Residential Stability Answer Date Recor ded What is your housing situation today? I choose n ot to answer 07/06/2024 How many times have you move d in the past 12 months? I choose not to answer 07/06/2024 Paying for Meds Answer Date Recorded Do you have trouble paying for medicines? I yohannes se not to answer 07/06/2024 Paying Utility Bills Answer Date Record ed Do you have trouble paying y our heating or electricity bill? I choose not to answer 07/06/2024 Transportation Answer Date Recorded Has the lack of transportati on kept you from medical appointments or from getting medications? I choose not to answer 07/06/2024 Unemployment Answer Date Recorded Are you currently unemployed or working on a part-time or temporary basis, and looking for work? I choose not to answer 09/26/2021 Digital Access Answer Date Recorded No 07/06/2024 No 07/06/2024 Do you have reliable internet access at home? I choose not to answer 07/06/2024 Do you have a device (e.g., phone, tablet, computer) with a working camera? I choose not to answer 07/06/2024 Intimate Partner Violence Answer Date R ecorded Denied Basic Needs Not on file 07/06/2024 In the past 12 months have y ou been in a relationship with a person who hurts, threatens, or tries to control you? No 07/06/2024 Worried food would run out Not on file 07/06 In the past 12 months have y ou been in a relationship with a person who hurts, threatens, or tries to control you? No 07/06/2024 Comments Unknown Sex and Gender Information Value Date Recorded Sex Assigned at Not on file Legal Sex Female 9:36 PM EDT Gender Identity Not on file Sexual Orientation Not on file Last Filed Vital Signs Vital Sign Reading Time Taken Comments Blood Pressure 172/84 09/03/2024 2:11 PM EDT Pulse 83 09/03/2024 2:11 PM EDT Temperature 36.4 C (97.5 F) 07/09/2024 2:25 PM EST Respiratory Rate 20 09/03/2024 2:11 PM EDT Oxygen Saturation 99% 09/03/2024 2:11 PM EDT Inhaled Oxygen Concentration - - Weight 100.2 kg (221 lb) 09/03/2024 2:11 PM EDT Height 159.7 cm (5' 2.87 ) 09/03/2024 2:11 PM ED T Body Mass Index 39.31 09/03/2024 2:11 PM EDT Plan of Treatment Health Maintenance Due Date Last Done Comments HEPATITIS C SCREENING 1987 HIV ONE-TIME SCREENING (18-65 YEARS) 1987 COLOGUARD 2014 FIT TEST 2014 FOBT 2014 SIGMOIDOSCOPY 2014 VIRTUAL COLONOSCOPY 2014 PNEUMOCOCCAL VACCINES (50+ years) (1 of 1 - PCV) 2019 INFLUENZA VACCINE (#1) 2024 , 03/19/2017, 02/29/2016, Additional history exists COVID-19 VACCINE ( - season) 2025 BLOOD PRESSURE 03/05/2025 09/03/2024 DEPRESSION SCREENING 07/06/2025 07/06/2024 POTASSIUM LEVEL 07/09/2025 07/09/2024, 08/2023, 10/06/2021, Additional history exists MAMMOGRAM 05/07/2026 05/07/2024, 12/2022, 04/26/2022, Additional history exists SCREENING FOR DIABETES 07/09/2027 07/09/2024, 2023 PAP SMEAR 01/02/2028 01/01/2023, 09/24, 02/19/2017 Adult Td,Tdap Booster 11/12/2028 11/12/2018, 004 LIPID PANEL 07/09/2029 07/09/2024, 09/23, 06/24/2020, Additional history exists COLONOSCOPY 12/13/2030 12/13/2020 COLORECTAL CANCER SCREENING 12/13/2030 RSV VACCINE (1 - 1-dose 75+ series) 2044 ZOSTER VACCINES Completed 11/08/2020, 07/25/2020 SMOKING STATUS SCREENING (Once After 26 Yrs) Completed 09/03/2024 HEPATITIS A VACCINES Aged Out No long er eligible based on patient's age to complete this topic HIB VACCINES Aged Out No longer eligi ble based on patient's age to complete this topic MENINGOCOCCAL VACCINES (ACWY) Aged Out No longer eligible based on patient's age to complete this topic MENINGOCOCCAL VACCINES (B) Aged Out N o longer eligible based on patient's age to complete this topic Medical Devices Not on file Procedures Procedure Name Priority Date/Time Associated Diagnosis Comments LIPID PANEL Routine 07/09/2024 3:18 PM EST Routine general medical examination at a [facility] facility BASIC METABOLIC PANEL (BMP) Routine 07/09/2024 3:18 PM EST Elevated glucose MAMMOGRAPHY Routine 05/07/2024 2:09 PM EST PAP TEST Routine 01/01/2023 COLONOSCOPY FOR RESULT ENTRY ONLY Routine 12/13/2020 from Last 3 Months or Most Recently Relevant to Health Maintenance Results * (ABNORMAL) Lipid panel (07/09/2024 3:18 PM EST) Pathologist [facility] HDL 57 mg/dL [facility] Comment: Interpretation <40 mg/dL: Low HDL cholesterol (major risk factor for CHD) Greater than or equal to 60 mg/dL: High HDL cholesterol ( negative risk factor for CHD) HDL - cholesterol is affected by a number of factors, e.g. smoking, excerise, hormones, sex and age. CHOLESTEROL 233 0 - 240 mg/dL [facility] TRIGLYCERIDES 153 30 - 160 mg/dL [facility] LDL 145(H) 50 - 129 mg/dL [facility] Comment: LDL levels in terms of risk for coronary heart disease: <100 mg/dL: Optimal 100-129 mg/dL: Near or above optimal 130-159 mg/dL: Borderline high 160-189 mg/dL: High >190 mg/dL: Very High CARDIAC RISK RATIO 4.1 3.3 - 4.4 C [facility] Blood 07/09/2024 3:18 PM EST 07/09/2024 3:21 PM EST us Sadi Vazquez MD LAB BLOOD BKR ORDERABLES Final R esult [facility] [address] [place] [address] * (ABNORMAL) Basic metabolic panel (07/09/2024 3:18 PM EST) [facility] SODIUM 139 133 - 146 mmol/L [facility] CHLORIDE 103 96 - 108 mmol/L [facility] POTASSIUM 4.4 3.3 - 5.1 mmol/L [facility] CO2 26 21 - 35 mmol/L [facility] BUN 14 6 - 19 mg/dL [facility] CREATININE 0.80 0.5 - 1.5 mg/dL [facility] GLUCOSE 133(H) 70 - 99 mg/dL [facility] CALCIUM 9.3 8.4 - 10.3 mg/dL [facility] EGFR 87 >59 mL/min/1.7 3m2 [facility] Comment:Estimated glomerular filtration rate calculated using the CKD-EPI refit equation. ANION GAP 14 10 - 20 mmol/L [facility] Blood 07/09/2024 3:18 PM EST 07/09/2024 3:21 PM EST Sadi Vazquez MD LAB BLOOD BKR ORDERABLES Final R esult [facility] [address] [place] [address] * MAMMOGRAPHY FOR RESULT ENTRY ONLY (05/07/2024 2:09 PM EST) Historical Provider HEALTH MAINTENANCE Final Result * Pap Test (01/01/2023) Mar Seymour ELECTRICIAN MAINTENANCE CYTOLOGY ORDERABLES Ed ited Result - Final * COLONOSCOPY FOR RESULT ENTRY ONLY (12/13/2020) Historical Provider HEALTH MAINTENANCE Edited Result - Final from Last 3 Months or Most Recently Relevant to Health Maintenance [place] [address] [facility] H[facility] [address] [place] [id number] [facility] HMO Care Teams Security Tester Relationship Specialty Start Date End Date Sadi Vazquez MD [address] [place] [address] [email or web address] PCP - General Internal Medicine 01/02/23 Edgardo Mancia MD [address] [place] [address] [email or web address] Insurance Assigned Provider Internal Medicine 11/12/18 Kenyatta Bourgeois MD [address] [place] [id number] Obstetrics and Gynecology 09/23/19 Francine De La Torre MD [address] [place] [address] [address] [place] [address] [email or web address] 09/26/21 Tisha Chowdary MBBS [address] [place] [phone] [email or web address] Primary Oncologist Internal Medicine 12/27/24 Gwen Vallecillo PA-C [address] [place] [id number] [email or web address] Physician Hydroelectric Production Technician 02/28/25 Additional Source Comments The information contained in this document represents components of the legal health record. It is not the complete legal health record.[facility]
== END 2025-05-13 10:07 | disposition home or self-care (01) ==
LOC: HO.MAMMO 10:06
PROVIDERS: PCP Radiology Diagnostic Radiology; Visit Provider Internal Medicine
DX: Z12.31 Encounter for screening mammogram for malignant neoplasm of breast (principal)
CPT/HCPCS: 77063; 77067

== ENCOUNTER → 2025-05-13 10:15 | Outpatient (BNV) | payer OTHER, SELFPAY | PROVIDERS: PCP Radiology Diagnostic Radiology; Visit Provider Internal Medicine | DX: Z12.31 Encounter for screening mammogram for malignant neoplasm of breast (principal) | CPT/HCPCS: 77063; 77067 ==